=== PATIENT | female | born 1990 | race Hispanic/Latino ===

== ENCOUNTER 2017-08-30 10:08 | Emergency (ER) | payer SELFPAY ==
[~2017-08-30] VITALS: Ht 152.4 cm; Wt 48.0 kg
[2017-08-30 10:54] LABS: URINE BILIRUBIN - DIPSTICK NEGATIVE (NEGATIVE); URINE BLOOD DIPSTICK NEGATIVE (NEGATIVE); URINE COLOR YELLOW; URINE GLUCOSE - DIPSTICK NEGATIVE (NEGATIVE); URINE KETONE NEGATIVE (NEGATIVE); URINE LEUK ESTERASE NEGATIVE (NEGATIVE); URINE NITRITE - DIPSTICK NEGATIVE (Negative); URINE PROTEIN - DIPSTICK NEGATIVE (NEG-TRACE); URINE SPECIFIC GRAVITY 1.015; URINE UROBILINOGEN - DIPSTICK 0.2 E.U./dL (0.2)
[2017-08-30 10:57] LABS: URINE CLARITY CLEAR
[2017-08-30] MEDS ORDERED: PHENERGAN25 M1 PO (12:03)
[2017-08-30 12:04] VITALS: BP 118/71
== END 2017-08-30 12:19 | disposition home or self-care (01) | DRG 392 ==
LOC: ED 10:08
PROVIDERS: Family Medicine
DX: R10.30 Lower abdominal pain, unspecified (principal); Z33.1 Pregnant state, incidental